=== PATIENT | male | born 1930 | race Caucasian/White ===

== ENCOUNTER 2017-08-12 15:21 | Emergency (ER) | payer OTHER ==
[~2017-08-12] VITALS: Ht 177.8 cm; Wt 91.6 kg
[~2017-08-12 15:21] MED LIST: CRESTOR20 MG PO; DYAZIDE, MA1 CAPSULE PO; METAMUCIL CAPSU1 CAP PO; METOPROLOL SUCC25 MG PO; PRILOSEC40 MG PO; PRIMIDONE50 MG PO; SERTRALINE HCL50 MG PO; [UNRECOGNIZED DRUG - OTHER]
[2017-08-12] MEDS ORDERED: VALIUM5 MG PO (17:51)
[2017-08-12] MEDS ORDERED: PREDNISONE10 MG PO (17:51)
[2017-08-12 18:02] VITALS: BP 124/74
== END 2017-08-12 18:04 | disposition home or self-care (01) ==
LOC: EME 15:21
DX: M54.42 Lumbago with sciatica, left side (principal); I10 Essential (primary) hypertension; K21.9 Gastro-esophageal reflux disease without esophagitis; E78.5 Hyperlipidemia, unspecified; F32.9 Major depressive disorder, single episode, unspecified; Z87.891 Personal history of nicotine dependence; Z95.5 Presence of coronary angioplasty implant and graft
CPT/HCPCS: 99281; 99283